=== PATIENT | female | born 1950 ===

== ENCOUNTER 2022-05-08 06:32 | Day surgery (SDC) | payer MEDICARE, OTHER ==
[~2022-05-08] VITALS: Ht 170.2 cm; Wt 82.4 kg
[2022-05-08] MEDS ORDERED: PARO20 PO (06:56)
[2022-05-08] MEDS ORDERED: AMLO10 PO (06:56)
[2022-05-08] MEDS ORDERED: ALPRAZOLAM2 M1 PO (06:57)
[2022-05-08] MEDS ORDERED: HYDACE10B PO (06:58)
--- NOTE | 2022-05-08 07:29 | NUR ---
Ambulatory in Day Surgery History, Chart, Medications and Allergies reviewed before start of procedure. Pre-Op teaching done. Pt verbalizes understanding. Patient States Post-Procedure ride home has been arranged.
[2022-05-08] MEDS ORDERED: HYDR1TAB94 PO (14:39)
[2022-05-08] MEDS ORDERED: MOTRIN IB200 MG PO (14:40)
--- NOTE | 2022-05-08 15:15 | NUR ---
DISCHARGE SUMMARY PT STATUS POST LAP ASSISTED VAGINAL HYSTER. PT ALSO HAD A PROLAPSED BLADDER AND C/O NOT BEING ABLE TO URINATE PRIOR TO PROCEDURE. POST PROCEDURE THE PATIENT WAS ABLE TO URINATE ON HER OWN WITHOUT DIFFICULTY AND EXPERIENCED SOME INCONTINENCE. BLOOD CLOTS NOTED IN URINE. 3 LAP SITES WITH STERI STRIPS DRY AND INTACT. SOME DRAINAGE NOTED ON THE SITE AT [place]. PT DENIES PAIN OR NAUSEA. PT VERY ANXIOUS TO LEAVE AND REPORTS THAT SHE FEELS VERY WELL. DC'D HOME WITH FRIEND.
== END 2022-05-08 15:07 | disposition home or self-care (01) ==
LOC: ORSCMMR 06:32 → SURS 11:27 → ORSCMMR 15:07 → SURS 15:07
PROVIDERS: Obstetrics & Gynecology
PROC: 0JQC0ZZ Repair Pelvic Region Subcutaneous Tissue and Fascia, Open Approach (ICD-10-PCS; principal; 2022-05-08 07:30)
PROC: 0UT7FZZ Resection of Bilateral Fallopian Tubes, Via Natural or Artificial Opening With Percutaneous Endoscopic Assistance (ICD-10-PCS; principal; 2022-05-08 07:30)
PROC: 0UT0FZZ Resection of Right Ovary, Via Natural or Artificial Opening With Percutaneous Endoscopic Assistance (ICD-10-PCS; principal; 2022-05-08 07:30)
PROC: 0UT9FZZ Resection of Uterus, Via Natural or Artificial Opening With Percutaneous Endoscopic Assistance (ICD-10-PCS; principal; 2022-05-08 07:30)
DX: N81.2 Incomplete uterovaginal prolapse (principal); D25.2 Subserosal leiomyoma of uterus; N83.291 Other ovarian cyst, right side; I10 Essential (primary) hypertension; F32.A Depression, unspecified; Z79.899 Other long term (current) drug therapy
CPT/HCPCS: 88307; A9270; J0171; J0690; J1100; J1885; J2250; J2405; J2704; J2795; J3010; J7120

== ENCOUNTER → 2022-05-22 | Outpatient (CLI) | payer MEDICARE, OTHER ==
[~2022-05-22] MED LIST: ALPRAZOLAM2 M1 PO; AMLO10 PO; HYDACE10B PO; HYDR1TAB94 PO; MOTRIN IB200 MG PO; PARO20 PO
== END | disposition home or self-care (01) ==
LOC: LAB SHORT 17:43 → LAB 17:43
DX: N89.8 Other specified noninflammatory disorders of vagina (principal)
CPT/HCPCS: 87070; 87205